=== PATIENT | female | born 1955 | race African-American/Black ===

== ENCOUNTER → 2018-07-20 | Outpatient (CLI) | payer MEDICARE, BC ==
[2018-07-20 18:24] LABS: INR 4.17; PROTHROMBIN TIME 41.3 SECONDS (12.1-14.4)
== END ==
LOC: M SMT 14:06
DX: I48.0 Paroxysmal atrial fibrillation (principal); Z79.01 Long term (current) use of anticoagulants
CPT/HCPCS: 85610